=== PATIENT | male | born 1930 | race Caucasian/White ===

== ENCOUNTER 2016-08-11 09:40 | Inpatient (IN) | payer MEDICARE, BC ==
[2016-08-11] MEDS ORDERED: FUROSEMIDE 40 MG/4 ML VIAL ONE (10:37)
[2016-08-11 10:42] LABS: ABSOLUTE NEUTROPHIL COUNT 6.1 K/mm3 (1.8-7.7); BASO % 0.1 % (0.2-1.0); EOS # 0.1 (0.0-0.5); EOS % 0.9 % (0.9-2.9); HEMATOCRIT 31.5 % (32.0-52.0); HEMOGLOBIN 10.3 gm/l (14.0-18.0); IMM NEUT # 0.1 K/mm3 (0-0.2); IMM NEUT% 0.6 % (0-1); LYMPH # 0.9 (1.0-4.8); MEAN CELL VOLUME 99.4 fl (80.0-94.0); MEAN CORPUSCULAR HEMOGLOBIN 32.5 pg (27.0-31.0); MEAN CORPUSCULAR HGB CONC 32.7 g/dl (33.0-37.0); MEAN PLATELET VOLUME 9.7 fl (7.4-10.4); MONO # 0.8 (0.0-0.8); MONO % 9.6 % (4-12); NEUT % 77.8 % (43-75); PLATELET COUNT 204 K/mm3 (130-400); RED CELL DISTRIBUTION WIDTH 18.6 % (11.5-14.5)
[2016-08-11 10:47] LABS: INR 3.6; PROTHROMBIN TIME 40.4 SECONDS (9.3-11.4)
[2016-08-11 10:53] LABS: TROPONIN I 0.05 ng/ml (0.0-0.06)
[2016-08-11 10:55] LABS: PH,URINE 6.5 (5.0-8.0); URINE BILIRUBIN NEGATIVE (NEGATIVE); URINE BLOOD NEGATIVE (NEGATIVE); URINE GLUCOSE (UA) NEGATIVE (NEGATIVE); URINE LEUKOCYTE ESTERASE NEGATIVE (NEGATIVE); URINE NITRITE NEGATIVE (NEGATIVE); URINE PROTEIN NEGATIVE (NEGATIVE); URINE UROBILINOGEN NORMAL (0-1 mg/dl)
[2016-08-11 10:57] LABS: CKMB ISOENZYME 2.4 ng/ml (0.6-6.3)
[2016-08-11 10:57] LABS: URINE APPEARANCE CLEAR; URINE COLOR YELLOW
--- NOTE | 2016-08-11 11:01 | RAD ---
History: Dyspnea for 4 days with weight gain. Comparison: 06/11/2016. Technique: 2 views Findings: Multilevel thoracic degenerative changes are identified. The heart size is borderline prominent with mild central vascular prominence. No gross infiltrate, effusion or pneumothorax is visualized. The hilar and mediastinal structures are intact. Impression: 1. Borderline cardiac size with mild central vascular prominence. The appearance is similar to that seen on prior examination.
[2016-08-11] MEDS ORDERED: ALBUTEROL/IPRATROPIUM 2.5/0.5 MG 3 ML/EACH DOSE ONE (11:16)
[2016-08-11 11:22] LABS: ALB/GLOB RATIO 1.2 (>1.0); ALBUMIN 3.8 gm/dL (3.5-5.7)
[2016-08-11] MEDS ORDERED: ACETAMINOPHEN 325 MG TABLET PO PRN (13:36)
[2016-08-11] MEDS ORDERED: BISACODYL 10 MG SUP PR PRN (13:36)
[2016-08-11] MEDS ORDERED: BLISTEX LIPSTICK 1 EACH TP PRN (13:36)
[2016-08-11] MEDS ORDERED: MENTHOL/CETYLPYRD 1 EACH LOZENGE PO PRN (13:36)
[2016-08-11] MEDS ORDERED: MAGNESIUM HYDROXIDE 30 ML UDCUP PO PRN (13:36)
[2016-08-11] MEDS ORDERED: SODIUM CHLORIDE 0.9% 100 ML IV PRN (13:36)
[2016-08-11] MEDS ORDERED: BISACODYL 5 MG TABLET.EC PO PRN (13:36)
[2016-08-11 13:43] VITALS: BMI 36.3
[2016-08-11] MEDS ORDERED: ALBUTEROL NEB 2.5 MG/3 ML VIAL.NEB NEB PRN (14:45)
[2016-08-11] MEDS ORDERED: METOLAZONE 5 MG TABLET PO SCH (15:00)
[2016-08-11] MEDS ORDERED: FLU VACC 2016-17 (65 YR+)/PF 180 MCG/0.5 ML SYRINGE IM V ONE (15:51)
[2016-08-11] MEDS ORDERED: PNEUMOCOCCAL 23-VAL P-SAC VAC 0.5 ML VIAL IM V ONE (15:51)
[2016-08-11] MEDS: ALBUTEROL/IPRATROPIUM 2.5/0.5 MG 3 ML/EACH DOSE NEB SCH ×2 (16:02→20:53)
--- NOTE | 2016-08-11 17:30 | HP ---
SHAILA GONZALEZ [id number] DATE OF ADMISSION: 08/11/2016 CHIEF COMPLAINT: Dyspnea and weight gain. HISTORY OF PRESENT ILLNESS: The patient is an 86-year-old male with a history of chronic diastolic congestive heart failure, chronic obstructive pulmonary disease, obstructive sleep apnea with chronic respiratory failure and obesity who presents to the [facility] Emergency Department with history of gradual progressive weight gain over the last month of about 14 pounds. He has had some progressive shortness of breath during this time frame. He has also had increased weakness and difficulty getting out of bed today. He has orthopnea. He has not changed his diet. He denies any change in his cough; it is productive, but the sputum is clear. REVIEW OF SYSTEMS: Negative for any recent fevers or chills. He has had no upper respiratory symptoms. He complains of dyspnea on exertion and orthopnea. He denies palpitations. He has had some increased lower extremity edema. He denies nausea, vomiting, abdominal pain, diarrhea or constipation. He denies any headaches, fainting, blackouts or seizures. He has had no urinary complaints. Review of systems is otherwise negative. PAST MEDICAL HISTORY: Significant for: 1. Recent treatment for bronchitis on 07/30/2016 with doxycycline prescribed by his primary care provider. 2. He had a cortisone injection in his right shoulder earlier today at [facility]. 3. He was hospitalized in June of 2016 for CHF exacerbation and COPD exacerbation. 4. He is followed by [facility] for his CHF. 5. He has a history of some aortic stenosis, but it has been mild to moderate. His ejection fraction has been preserved at 55% on prior echoes, but he has right ventricular dilatation and elevated right ventricular systolic pressures, consistent with right-sided heart failure. 6. He has had chronic atrial fibrillation, with good rate control on Diltiazem and a Beta demetrius. 7. He is on long-term Coumadin therapy. [facility] 8. He has a history of obstructive sleep apnea, on CPAP, with chronic respiratory failure. 9. He also has an oxygen requirement of about one liter by nasal cannula. 10. He has chronic obstructive pulmonary disease and uses multiple medications including a nebulizer for this. 11. He has a remote history of pulmonary embolism after his shoulder surgery in 2009, and is also chronically anticoagulated for his atrial fibrillation. 12. He has a history of chronic essential hypertension, which has been controlled. 13. Elevated cholesterol, on Lipitor. 14. Adult-onset diabetes mellitus, treated with oral medications plus insulin. 15. He has chronic Stage-3 kidney disease. 16. He has a history of gout. 17. History of hypothyroidism. PAST SURGICAL HISTORY: Significant for: 1. A left carotid endarterectomy in the past. 2. Cataract surgery. 3. Hernia repair. 4. Radical prostatectomy. 5. Previous knee surgeries. 6. He has had a screening colonoscopy in the past. 7. Carpal tunnel release procedures. 8. Possibly lumbar spine surgery. ALLERGIES: No known drug allergies. CURRENT MEDICATIONS: His current medications are in the process of being confirmed. I got a medication list from the emergency department, compared it to his primary care provider's med list and discussed it with the patient, but we are still waiting for his to bring in his actual bottles. It is a little unclear if he is still taking Metolazone, and this may account for some of his weight gain. He is prescribed: 1. A multivitamin daily, 2. Trazodone 50 mg at bedtime as needed for sleep. 3. Coumadin 2 mg every day, except for 3 mg on Tuesday and . 4. Spiriva 18 mcg inhaled daily. 5. Symbicort 2 puffs inhaled twice daily. 6. DuoNebs 3 mL nebulized every 4-6 hours as needed for wheezing. 7. Albuterol HFA inhaler 1-2 puffs every four hours as needed for wheezing. 8. Vitamin B-12, 5,000 mcg daily. 9. Potassium chloride 40 mEq by mouth three times daily. 10. Nitroglycerin 0.4 mg sublingual every five minutes as needed for chest pain. 11. Lopressor 50 mg twice daily. The dose needs to be confirmed. 12. Metolazone needs to be confirmed. In the past he has been prescribed 5 mg to take daily if his weight gets above 250, but he says he takes it every day, but the pharmacy has no record of him getting it filled, and so I am waiting for his to bring it in. 13. He has Levothroid 50 mcg daily. 14. Lantus insulin 35 units sub-Q at bedtime. 15. Glipizide XL 5 mg daily. 16. Diltiazem Extended-Release 180 mg daily. 17. Bumex 6 mg by mouth twice a day. 18. Lipitor 40 mg by mouth daily. IMMUNIZATIONS: He has not had a flu vaccine this flu season. I do not have any recorded immunizations for Pneumococcal vaccinations either. FAMILY HISTORY: Significant for mother with congestive heart failure and hypertension. His father had hypertension. His brother had heart disease at an early age SOCIAL HISTORY: The patient is living with his in [place], and they have been together for over 65 years. They have three children. He is a former smoker and quit about five years ago after at 45-50 pack-year history of smoking. He denies alcohol use. He is retired. He has a daughter and granddaughter living nearby in [place]. His primary care provider is Dr. Jm Griffin with [facility] in [place]. CODE STATUS: His code status is DNR based on discussion with him today. He thinks he has a POLST form somewhere, but there is nothing on file with his primary care provider's office. I left the paperwork with him to discuss with his . PHYSICAL EXAMINATION: VITAL SIGNS: Temperature 97.6. Pulse 71. Blood pressure 111/65. Respirations 15. Oxygen saturation is 96% on one and a half liters. Body mass index is 36.3 and weight is 121.4 kilograms. GENERAL: This is an obese male in mild respiratory distress. HEENT: Shows moist pink oral mucosa, without lesions. NECK: Supple, without lymphadenopathy or thyromegaly. LUNGS: Diminished breath sounds in the bases. Otherwise clear to auscultation bilaterally. CARDIOVASCULAR: Reveals an irregular rhythm, with normal rate. No murmur. ABDOMEN: Obese, soft, nontender and nondistended, with positive bowel sounds. LOWER EXTREMITIES: Showed 2+ dependent edema up to the knees. Pulses are diminished, but palpable at the dorsalis pedis arteries and posterior tibial arteries bilaterally. SKIN: Warm, dry and intact. NEUROLOGIC: Exam is nonfocal. LABORATORY STUDIES: Included a CBC with a white count of 7.9, hemoglobin of 10.3 and a platelet count of 204,000. INR is supratherapeutic at 3.60. Chemistry profile shows a sodium of 130, potassium 3.4, carbon dioxide 31, BUN of 100, creatinine 2.1 and glucose 216. Liver function tests are normal. Cardiac enzymes are negative. B-type natriuretic peptide is 404. Urine is unremarkable. IMAGING: Chest x-ray shows cardiomegaly, but no clear-cut evidence of pulmonary edema. There is some mild central vascular prominence. EKG: A 12-lead EKG performed in the emergency department showed atrial fibrillation with a right bundle branch block. There is some nonspecific ST depression. ASSESSMENT: 1. The patient has generalized weakness, multifactorial, associated with some increased dyspnea and weight gain, concerning for acute on chronic diastolic heart failure. 2. He also has chronic obstructive pulmonary disease pulmonary disease with chronic respiratory failure, on home oxygen therapy. 3. Obstructive sleep apnea, on CPAP therapy. 4. He has chronic Stage-3 kidney disease, with elevated [id number] ratio, and his creatinine is a tad above his baseline of 1.7, which is the value it was his last visit. 5. His glucose levels are 121 and he has diabetes, which seems to be well-controlled. 6. He has chronic atrial fibrillation, with adequate rate control, anticoagulated on Coumadin, slightly supratherapeutic Coumadin levels. Will probably hold his Coumadin pills today, then recheck his INR in the morning and adjust accordingly. PLAN: He meets criteria for observation. We will place him on telemetry and ask PT and OT to see the patient in the morning. Further treatment and recommendations will depend on his hospital course. cc: Dr. Kahlil Griffin in [place]
[2016-08-11] MEDS: INSULIN ASPART (DOSE) 100 UNITS/1 ML SUB-Q PRN ×2 (17:54→21:53)
[2016-08-11] MEDS ORDERED: WATER FOR IRRIG,STERILE 500 ML BOT ONE (20:28)
[2016-08-11] MEDS: DOCUSATE SODIUM 100 MG CAPSULE PO SCH (20:54)
[2016-08-11] MEDS ORDERED: BUMETANIDE 1 MG TABLET PO ONE (21:19)
[2016-08-11] MEDS: DIPHENHYDRAMINE HCL 25 MG CAPSULE PO PRN (21:54)
[2016-08-11] MEDS: TRAZODONE HCL 50 MG TABLET PO PRN (21:54)
[2016-08-12] MEDS: CODEINE/APAP 30/300 MG 1 EACH TABLET PO PRN ×3 (02:37→22:50)
[2016-08-12 06:23] LABS: ABSOLUTE NEUTROPHIL COUNT 5.5 K/mm3 (1.8-7.7); BASO % 0.3 % (0.2-1.0); EOS # 0.1 (0.0-0.5); EOS % 0.7 % (0.9-2.9); HEMATOCRIT 29.3 % (32.0-52.0); HEMOGLOBIN 9.6 gm/l (14.0-18.0); IMM NEUT # 0.1 K/mm3 (0-0.2); IMM NEUT% 0.7 % (0-1); LYMPH # 0.9 (1.0-4.8); LYMPH % 11.8 % (15-45); MEAN CELL VOLUME 98.7 fl (80.0-94.0); MEAN CORPUSCULAR HEMOGLOBIN 32.3 pg (27.0-31.0); MEAN CORPUSCULAR HGB CONC 32.8 g/dl (33.0-37.0); MEAN PLATELET VOLUME 9.9 fl (7.4-10.4); MONO # 0.8 (0.0-0.8); MONO % 10.5 % (4-12); PLATELET COUNT 185 K/mm3 (130-400); RED CELL DISTRIBUTION WIDTH 18.4 % (11.5-14.5)
[2016-08-12 06:35] LABS: INR 2.75; PROTHROMBIN TIME 30.4 SECONDS (9.3-11.4)
[2016-08-12 07:20] LABS: CALCIUM 9.6 mg/dL (8.6-10.3)
[2016-08-12] MEDS: INSULIN ASPART (DOSE) 100 UNITS/1 ML SUB-Q PRN ×4 (07:33→21:29)
[2016-08-12] MEDS: ALBUTEROL/IPRATROPIUM 2.5/0.5 MG 3 ML/EACH DOSE NEB SCH ×4 (08:06→20:39)
[2016-08-12] MEDS: DOCUSATE SODIUM 100 MG CAPSULE PO SCH ×2 (08:19→20:13)
[2016-08-12] MEDS ORDERED: NITROGLYCERIN 0.4 MG/TAB.SUBL BOT SL PRN (09:34)
[2016-08-12] MEDS ORDERED: BUMETANIDE 1 MG TABLET PO SCH (09:45)
[2016-08-12] MEDS: ATORVASTATIN CALCIUM 40 MG TABLET PO SCH (10:27)
[2016-08-12] MEDS: POTASSIUM CHLORIDE 20 MEQ TAB.PRT.SR PO SCH ×4 (10:28→16:20)
[2016-08-12] MEDS: DILTIAZEM HCL CD 180 MG CAPSULE PO SCH (10:28)
[2016-08-12] MEDS: METOPROLOL TARTRATE 50 MG TABLET PO SCH ×2 (10:28→20:13)
[2016-08-12] MEDS: TIOTROPIUM BROMIDE 18 MCG 5 CAP/INHALER IH SCH (10:29)
[2016-08-12] MEDS: BUDESONIDE/FORMOTEROL 160/4.5 60 PUFFS/6 G INHALER IH SCH ×2 (11:46→20:14)
--- NOTE | 2016-08-12 12:40 | PDOC43 ---
- Subjective Chief Complaint: SOB, weakness Feeling a bit better today. Still SOB but feels he is near baseline. Subjective: Denies Chest Pain, Denies Nausea, Denies Vomiting, Denies Fever, Denies Chills - Objective Vital Signs Temperature 97.8 F 08/12/16 11:00 Pulse Rate 50 08/12/16 11:00 Respiratory Rate 18 08/12/16 11:00 Blood Pressure 132/68 08/12/16 11:00 O2 Saturation by Pulse Oximetry 95 08/12/16 11:00 Oxygen Delivery Method Nasal Cannula Oxygen Flow Rate 1.5 Intake and Output 08/11/16 08/12/16 08/13/16 06:59 06:59 06:59 Intake Total 400 Output Total 3500 Balance -3100 General: Alert, Oriented x3, Cooperative, No Acute Distress HEENT: Atraumatic Lungs: Other (Distant sounds B. Rare exp wheezes scattered B.) Cardiovascular: Irregular Abdomen: Soft, Normal Bowel Sounds, No Tenderness Extremities: Edema (Tr edema B.) Laboratory 08/12/16 06:00 08/12/16 06:00 Current Medications: Current meds reviewed in EMR. - Problems: Assessment/Plan (1) CHF (congestive heart failure) Qualifiers: Congestive heart failure type: diastolic Congestive heart failure chronicity: acute on chronic Qualifier Code: (I50.33) Acute on chronic diastolic (congestive) heart failure Status: Acute Assessment/Plan: Acute on chronic diastolic CHF. Has component of R heart failure. Appears improved this AM on usual diuretic regimen. Marked diuresis overnight with only nl meds- concern for inability to manage meds at home. Caremanagement involved. PT/OT. (2) Hypokalemia Status: Acute Assessment/Plan: Replace and follow. (3) COPD (chronic obstructive pulmonary disease) Qualifiers: COPD type: unspecified COPD Qualifier Code: (J44.9) Chronic obstructive pulmonary disease, unspecified Status: Chronic Assessment/Plan: Appears at baseline. Chronic resp failure normally on 1 L O2 at home. (4) PARKER (obstructive sleep apnea) Status: Chronic Assessment/Plan: At baseline. Con't usual CPAP. (5) Atrial fibrillation Qualifiers: Atrial fibrillation type: chronic Qualifier Code: (I48.2) Chronic atrial fibrillation Status: Chronic Assessment/Plan: Chronic at baseline. Con't usual dilt/metoprolol, coumadin, etc. 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 Con't current regimen. (7) CKD (chronic kidney disease) stage 3, GFR 30-59 ml/min Status: Chronic Assessment/Plan: Follow closely. (8) Hypothyroidism Qualifiers: Hypothyroidism type: unspecified Qualifier Code: (E03.9) Hypothyroidism , unspecified Status: Chronic Assessment/Plan: Stable. Con't usual regimen. (9) Anemia Qualifiers: Anemia type: other cause Other causes of anemia: chronic disease, kidney Qualifier Code: (N18.9) Chronic kidney disease, unspecified Status: Chronic Assessment/Plan: Chronic, multi factoral At baseline. (10) HTN (hypertension) Qualifiers: Hypertension type: essential hypertension Qualifier Code: (I10) Essential (primary) hypertension Status: Chronic Assessment/Plan: Stable. Con't usual regimen. (11) Obesity (BMI 30-39.9) Status: Chronic Assessment/Plan: Complicating all other dx/tx. VTE Prophylaxis: Coumadin. Disposition: Anticipate d/c home n 1-2 days.
[2016-08-12] MEDS ORDERED: POTASSIUM CHLORIDE 40 MEQ in SODIUM CHLORIDE 0.9% 500 ML IV ONE (13:30)
[2016-08-12] MEDS ORDERED: PUMP TUBING ONE (13:54)
[2016-08-12] MEDS ORDERED: WARFARIN SODIUM 1 MG TABLET PO SCH (16:00)
[2016-08-12] MEDS: Potassium Chloride ORAL SOLN 20 MEQ/15 ML UDCUP PO SCH ×2 (16:22→20:13)
[2016-08-12] MEDS: BUMETANIDE 1 MG TABLET PO SCH (17:31)
[2016-08-12] MEDS: TRAZODONE HCL 50 MG TABLET PO PRN (20:13)
[2016-08-12] MEDS: DIPHENHYDRAMINE HCL 25 MG CAPSULE PO PRN (20:14)
[2016-08-12] MEDS ORDERED: INSULIN GLARGINE (DOSE) 100 UNITS/ML UNIT SUB-Q SCH (21:00)
[2016-08-13 06:05] LABS: HEMATOCRIT 31.9 % (32.0-52.0); HEMOGLOBIN 10.2 gm/l (14.0-18.0); MEAN CELL VOLUME 101.6 fl (80.0-94.0); MEAN CORPUSCULAR HEMOGLOBIN 32.5 pg (27.0-31.0); RED CELL DISTRIBUTION WIDTH 18.7 % (11.5-14.5)
[2016-08-13 06:20] LABS: CALCIUM 10.4 mg/dL (8.6-10.3)
[2016-08-13] MEDS ORDERED: LEVOTHYROXINE SODIUM 50 MCG TABLET PO SCH (07:30)
[2016-08-13] MEDS: Potassium Chloride ORAL SOLN 20 MEQ/15 ML UDCUP PO SCH (08:21)
[2016-08-13] MEDS: BUMETANIDE 1 MG TABLET PO SCH (08:23)
[2016-08-13] MEDS: DILTIAZEM HCL CD 180 MG CAPSULE PO SCH (08:25)
[2016-08-13] MEDS: DOCUSATE SODIUM 100 MG CAPSULE PO SCH (08:26)
[2016-08-13] MEDS: METOPROLOL TARTRATE 50 MG TABLET PO SCH (08:26)
[2016-08-13] MEDS: ATORVASTATIN CALCIUM 40 MG TABLET PO SCH (08:26)
[2016-08-13] MEDS: INSULIN ASPART (DOSE) 100 UNITS/1 ML SUB-Q PRN ×2 (08:32→11:58)
[2016-08-13] MEDS: BUDESONIDE/FORMOTEROL 160/4.5 60 PUFFS/6 G INHALER IH SCH (08:33)
[2016-08-13] MEDS: TIOTROPIUM BROMIDE 18 MCG 5 CAP/INHALER IH SCH (08:33)
[2016-08-13] MEDS: ALBUTEROL/IPRATROPIUM 2.5/0.5 MG 3 ML/EACH DOSE NEB SCH ×2 (08:37→13:44)
[2016-08-13] MEDS ORDERED: METOLAZONE 5 MG TABLET PO SCH (09:00)
[2016-08-13 11:14] VITALS: BP 113/59
[2016-08-13] MEDS ORDERED: WARFARIN SODIUM 2 MG TABLET PO SCH (16:00)
--- NOTE | 2016-08-17 11:38 | DS ---
Viviane Zimmerman ADMIT DATE: 08/11/2016 DISCHARGE DATE: 08/13/2016 ADMIT DIAGNOSES: 1. Acute on chronic diastolic heart failure. 2. Underlying chronic obstructive pulmonary disease appears to be a baseline with chronic respiratory failure on home O2. 3. Obstructive sleep apnea at baseline. 4. Chronic kidney disease stage III with mild exacerbation at time of admit. 5. Diabetes mellitus type 2. 6. Chronic atrial fibrillation stable on usual diltiazem and metoprolol and anticoagulated with Coumadin. 7. Chronic anemia at baseline. 8. Hypertension at baseline. 9. Obesity at baseline. DISCHARGE DIAGNOSIS: 1. Acute on chronic diastolic heart failure. 2. Underlying chronic obstructive pulmonary disease appears to be a baseline with chronic respiratory failure on home O2. 3. Obstructive sleep apnea at baseline. 4. Chronic kidney disease stage III with mild exacerbation at time of admit. 5. Diabetes mellitus type 2. 6. Chronic atrial fibrillation stable on usual diltiazem and metoprolol and anticoagulated with Coumadin. 7. Chronic anemia at baseline. 8. Hypertension at baseline. 9. Obesity at baseline. ADMIT HISTORY AND PHYSICAL: Please see Dr. Robles's note for details. Briefly, Mr. Zimmerman is a 86-year-old male with known underlying diastolic heart failure/right sided heart failure. He presented with a gradual onset of worsening shortness breath over about the last month or so. In the emergency room he was found to have evidence of fluid overload/heart failure exacerbation. It was elected to admit him to the hospitalist service for further treatment. HOSPITAL COURSE: He was admitted. He was actually only treated with his usual oral doses of Bumex and other medications. He had a very marked diuresis on his first night of over 3 liters with this simple intervention. We continued on his usual medication regimen otherwise throughout his hospitalization and he actually did very well. By day of discharge he was working well with physical therapy and occupational therapy and did not have any increased O2 requirement over his baseline and it was felt that he was near baseline functional status at this point. There was a question given his response to just his usual medications that perhaps he was not taking his medications correctly and we have elected to continue with increased home health support for medication management upon discharge. He does have an appointment with his shipping clerk/admin on Tuesday. Also follow up with his regular physician, Dr. Kahlil Oneal on 08/20/2016 as scheduled. DISCHARGE MEDICATIONS: As prior to admit as follows: 1. Albuterol MDI 1 to 2 puffs as needed. 2. Nitroglycerin 0.4 mg sublingual as needed. 3. Lipitor 40 mg by mouth daily. 4. Budesonide/formoterol 2 puffs inhaled twice daily. 5. Vitamin B12 5000 mcg by mouth daily. 6. Diltiazem ER 180 mg by mouth daily. 7. Glucotrol XL 5 mg by mouth daily. 8. Metoprolol 50 mg by mouth twice daily. 9. Multivitamin 1 by mouth daily. 10. Potassium chloride 40 mEq by mouth three times daily. 11. Spiriva 1 puff inhaled daily. 12. Coumadin as directed. 13. Trazodone 50 mg by mouth at bedtime as needed. 14. Lantus 35 units subcutaneously bedtime. 15. Tylenol #3 one to two every 4 hours as needed. 16. Diltiazem 60 mg immediate release x1 as needed. 17. DuoNeb every 4 hours as needed. 18. Levothyroxine 50 mEq by mouth every morning. 19. Zaroxoyln 5 mg every Tuesday, Tuesday, Tuesday. 20. Bumetanide 6 mg by mouth twice daily. JOB: [id number] CC: [facility] Dr. Kahlil Oneal at [facility]
== END 2016-08-13 14:07 | disposition home health service (06) | DRG 291 ==
LOC: ED 09:40 → MS 12:59 → OBSVTOIN 08-12 10:23
PROVIDERS: ADMIT Family Medicine; ATTEND Family Medicine
DX: I13.0 Hypertensive heart and chronic kidney disease with heart failure and stage 1 through stage 4 chronic kidney disease, or unspecified chronic kidney disease (principal); I50.33 Acute on chronic diastolic (congestive) heart failure; J96.00 Acute respiratory failure, unspecified whether with hypoxia or hypercapnia; N18.3 Chronic kidney disease, stage 3 (moderate); E11.22 Type 2 diabetes mellitus with diabetic chronic kidney disease; J44.9 Chronic obstructive pulmonary disease, unspecified; G47.33 Obstructive sleep apnea (adult) (pediatric); E66.9 Obesity, unspecified; I48.2 Chronic atrial fibrillation; Z79.01 Long term (current) use of anticoagulants; D64.89 Other specified anemias; E11.21 Type 2 diabetes mellitus with diabetic nephropathy